=== PATIENT | female | born 1995 | race Caucasian/White ===

== ENCOUNTER 2017-07-05 12:51 | Outpatient (CLI) | payer MEDICAID | END 2017-07-05 14:55 | disposition home or self-care (01) | LOC: OBT 12:51 → L-D 12:51 → OBT 14:55 | DX: O69.81X0 Labor and delivery complicated by cord around neck, without compression, not applicable or unspecified (principal); Z3A.37 37 weeks gestation of pregnancy | CPT/HCPCS: 76818 ==

== ENCOUNTER 2017-07-11 08:47 | Outpatient (CLI) | payer MEDICAID | END 2017-07-11 11:18 | disposition home or self-care (01) | LOC: OBT 08:47 → L-D 08:48 → OBT 11:18 | DX: O62.9 Abnormality of forces of labor, unspecified (principal); Z3A.38 38 weeks gestation of pregnancy | CPT/HCPCS: 76818 ==

== ENCOUNTER 2017-08-10 12:01 | Outpatient (CLI) | payer MEDICAID ==
[2017-08-10 13:04] LABS: RUPTURE FETAL MEMBRANES NEGATIVE (NEGATIVE)
== END 2017-08-10 14:40 | disposition home or self-care (01) ==
LOC: OBT 12:01 → L-D 12:04 → OBT 14:40
DX: O42.92 Full-term premature rupture of membranes, unspecified as to length of time between rupture and onset of labor (principal); Z3A.38 38 weeks gestation of pregnancy
CPT/HCPCS: 76818; 84112

== ENCOUNTER 2017-08-18 09:26 | Inpatient (IN) | payer MEDICAID ==
[2017-08-18] MEDS ORDERED: LACTATED RINGER'S 1,000 ML IV (09:29)
[2017-08-18] MEDS ORDERED: OXYTOCIN 30 UNITS/LR 500 ML IV (09:30)
[2017-08-18] MEDS ORDERED: BUTORPHANOL 2 MG INJ IV (09:30)
[2017-08-18] MEDS ORDERED: CARBOPROST 250 MCG INJ IM (09:30)
[2017-08-18] MEDS ORDERED: IBUPROFEN 600 MG TAB PO (09:30)
[2017-08-18] MEDS ORDERED: LIDOCAINE 1% (MPF) 30 ML INJ INJ (09:30)
[2017-08-18 10:14] LABS: ADD MAN DIFF? NO
[2017-08-18 10:27] LABS: WHITE BLOOD COUNT 7.4 10^3/ul (4.8-10.8)
[2017-08-18 10:27] LABS: BASOPHILS % 0.3 % (0.0-2.0); EOSINOPHILS % 0.5 % (0.0-7.0); HEMATOCRIT 33.8 % (37.0-47.0); HEMOGLOBIN 11.3 g/dl (12.0-16.0); LYMPHOCYTES # 1.6 10^3/ul (0.8-2.9); LYMPHOCYTES % 22.1 % (15.0-51.0); MEAN CORPUSCULAR HGB CONC 33.4 g/dl (32.0-37.0); MEAN CORPUSCULAR VOLUME 86.7 fl (82.0-101.0); MEAN PLATELET VOLUME 12.4 fl (7.4-10.4); MONOCYTE # 0.5 10^3/ul (0.3-0.9); MONOCYTES % 6.1 % (0.0-11.0); NEUTROPHIL # 5.3 10^3/ul (1.6-7.5); NEUTROPHILS % 70.7 % (39.0-77.0); PLATELET COUNT 257 10^3/UL (140-415); RED CELL DISTRIBUTION WIDTH 15.2 % (11.5-14.5)
[2017-08-18 10:46] LABS: INR 0.89; PROTIME 12.1 Sec (11.9-14.9); PT RATIO 0.9
[2017-08-18 10:47] LABS: PARTIAL THROMBOPLASTIN TIME 26.2 Sec (25.0-35.0)
[2017-08-18 11:43] LABS: HEPATITIS B SURFACE ANTIGEN NEGATIVE (NEGATIVE)
[2017-08-18] MEDS: LACTATED RINGER'S 1,000 ML IV ×2 (12:10→17:00)
[2017-08-18] MEDS: OXYTOCIN 30 UNITS/LR 500 ML IV (14:05)
[2017-08-18 21:28] LABS: RAPID PLASMA REAGIN NONREACTIVE (NR)
[2017-08-19] MEDS: LACTATED RINGER'S 1,000 ML IV ×5 (00:57→19:50)
[2017-08-19] MEDS ORDERED: NALOXONE (0.4 MG/ML) INJ IV (14:30)
[2017-08-19] MEDS ORDERED: DIPHENHYDRAMINE 50 MG INJ IV (14:30)
[2017-08-19] MEDS ORDERED: ONDANSETRON 4 MG INJ IV (14:30)
[2017-08-19] MEDS ORDERED: FENTAnyl 2MCG/ML-ROPIV 0.2% 100 ML BAG EPI (14:30)
[2017-08-19] MEDS: MINERAL OIL LIGHT 10 ML VIAL TOP (23:40)
[2017-08-19] MEDS ORDERED: CEFAZOLIN 2 GM/50 ML (PMX) 50 ML IVPB (23:42)
[2017-08-19] MEDS: METHYLERGONOVINE 0.2 MG INJ IM ×2 (23:42→23:54)
[2017-08-19] MEDS: MISOPROSTOL 200 MCG TAB PR (23:44)
[2017-08-20] MEDS: OXYTOCIN 30 UNITS/LR 500 ML IV ×2 (00:02→00:13)
[2017-08-20] MEDS: CEFAZOLIN 2 GM/50 ML (PMX) 50 ML IVPB ×4 (00:14→22:23)
[2017-08-20] MEDS ORDERED: OXYTOCIN 30 UNITS/LR 500 ML IV (02:30)
[2017-08-20] MEDS ORDERED: METHYLERGONOVINE 0.2 MG INJ IM (02:30)
[2017-08-20] MEDS ORDERED: CARBOPROST 250 MCG INJ IM (02:30)
[2017-08-20] MEDS ORDERED: ZOLPIDEM 5 MG TAB PO (02:30)
[2017-08-20] MEDS ORDERED: MISOPROSTOL 200 MCG TAB PR (02:30)
[2017-08-20] MEDS ORDERED: OXYCODONE/ASPIRIN (4.88/325) TAB PO ×2 (02:30)
[2017-08-20] MEDS: BENZOCAINE 20% 56 ML SPRAY TOP (03:10)
[2017-08-20] MEDS: WITCH HAZEL/GLYCERIN PAD PR (03:10)
[2017-08-20] MEDS: ACETAMINOPHEN 325 MG TAB PO (03:10)
[2017-08-20] MEDS: LANOLIN 7 GM TUBE TOP (03:10)
[2017-08-20] MEDS: IBUPROFEN 600 MG TAB PO ×3 (06:07→18:12)
[2017-08-20] MEDS: CLINDAMYCIN 300 MG CAP PO ×3 (06:07→18:11)
[2017-08-20] MEDS ORDERED: METHYLERGONOVINE 0.2 MG INJ (07:00)
[2017-08-20] MEDS: SENNA/DOCUSATE NA (8.6MG/50MG) TAB PO ×2 (08:46→22:22)
[2017-08-20] MEDS: LACTATED RINGER'S 1,000 ML IV (13:45)
[2017-08-20] MEDS: CEPHALEXIN 500 MG CAP PO ×2 (13:49→18:11)
[2017-08-20 18:45] LABS: ADD MAN DIFF? NO
[2017-08-20 18:47] LABS: BASOPHILS % 0.1 % (0.0-2.0); EOSINOPHILS # 0.1 10^3/ul (0.0-0.5); EOSINOPHILS % 0.6 % (0.0-7.0); HEMATOCRIT 24.7 % (37.0-47.0); HEMOGLOBIN 8.1 g/dl (12.0-16.0); LYMPHOCYTES # 2.2 10^3/ul (0.8-2.9); LYMPHOCYTES % 17.6 % (15.0-51.0); MEAN CORPUSCULAR HEMOGLOBIN 28.6 pg (29.0-33.0); MEAN CORPUSCULAR HGB CONC 32.8 g/dl (32.0-37.0); MEAN CORPUSCULAR VOLUME 87.3 fl (82.0-101.0); MEAN PLATELET VOLUME 11.4 fl (7.4-10.4); MONOCYTES % 7.9 % (0.0-11.0); NEUTROPHIL # 9.2 10^3/ul (1.6-7.5); NEUTROPHILS % 73.3 % (39.0-77.0); PLATELET COUNT 200 10^3/UL (140-415); RED BLOOD COUNT 2.83 10^6/ul (4.20-5.40); RED CELL DISTRIBUTION WIDTH 15.3 % (11.5-14.5)
[2017-08-20 18:47] LABS: WHITE BLOOD COUNT 12.5 10^3/ul (4.8-10.8)
[2017-08-21] MEDS: CLINDAMYCIN 300 MG CAP PO ×3 (00:17→12:12)
[2017-08-21] MEDS: IBUPROFEN 600 MG TAB PO ×3 (00:17→12:12)
[2017-08-21] MEDS: CEPHALEXIN 500 MG CAP PO ×3 (00:17→12:12)
[2017-08-21] MEDS: LACTATED RINGER'S 1,000 ML IV ×3 (03:55→12:00)
[2017-08-21] MEDS: CEFAZOLIN 2 GM/50 ML (PMX) 50 ML IVPB ×2 (06:13→14:00)
[2017-08-21 08:24] LABS: ADD MAN DIFF? NO
[2017-08-21 08:30] LABS: BASOPHILS % 0.2 % (0.0-2.0); EOSINOPHILS # 0.1 10^3/ul (0.0-0.5); EOSINOPHILS % 1.3 % (0.0-7.0); HEMATOCRIT 21.7 % (37.0-47.0); HEMOGLOBIN 7.1 g/dl (12.0-16.0); LYMPHOCYTES # 2.6 10^3/ul (0.8-2.9); LYMPHOCYTES % 25.8 % (15.0-51.0); MEAN CORPUSCULAR HEMOGLOBIN 28.7 pg (29.0-33.0); MEAN CORPUSCULAR HGB CONC 32.7 g/dl (32.0-37.0); MEAN CORPUSCULAR VOLUME 87.9 fl (82.0-101.0); MEAN PLATELET VOLUME 12.3 fl (7.4-10.4); MONOCYTE # 0.6 10^3/ul (0.3-0.9); MONOCYTES % 5.9 % (0.0-11.0); NEUTROPHIL # 6.6 10^3/ul (1.6-7.5); NEUTROPHILS % 66.2 % (39.0-77.0); PLATELET COUNT 184 10^3/UL (140-415); RED BLOOD COUNT 2.47 10^6/ul (4.20-5.40); RED CELL DISTRIBUTION WIDTH 15.6 % (11.5-14.5)
[2017-08-21] MEDS: SENNA/DOCUSATE NA (8.6MG/50MG) TAB PO (09:23)
[2017-08-22] MEDS ORDERED: DIPHTH/TET/ACEL PERTUSS (ADULT) 0.5 ML VIAL IM* (09:00)
== END 2017-08-21 16:35 | disposition home or self-care (01) | DRG 774 ==
LOC: L-D 09:26 → PP1 08-20 01:48
PROVIDERS: Obstetrics & Gynecology
PROC: 4A1HXCZ Monitoring of Products of Conception, Cardiac Rate, External Approach (ICD-10-PCS; 2017-08-18 09:30)
DX: O36.63X0 Maternal care for excessive fetal growth, third trimester, not applicable or unspecified (principal); O72.1 Other immediate postpartum hemorrhage; Z37.0 Single live birth; Z3A.39 39 weeks gestation of pregnancy
CPT/HCPCS: 71046; 76815; 85025; 85610; 85730; 86592; 86900; 86901; 87340; 99464